=== PATIENT | female | born 1935 | race Caucasian/White ===

== ENCOUNTER → 2016-04-11 | Outpatient (CLI) | payer MEDICARE, BC ==
--- NOTE | 2016-04-11 13:40 | CT ---
EXAMINATION TYPE: CT brain wo con DATE OF EXAM: 04/11/2016 1:34 PM COMPARISON: Previous study dated 11/22/2015. HISTORY: Headache after injury. History of hematoma CT DLP: 909.40 mGycm Automated exposure control for dose reduction was used. FINDINGS: Central structures are midline. There is no evidence of hydrocephalus. There are mild, diffuse change s of atrophy. There is chronic White matter ischemic change. No subdural fluid collection is seen at this time. The orbits appear normal. Visualized portions of the paranasal sinuses and mastoids are clear. No depressed skull fracture is s een. IMPRESSION: 1. NO ACUTE INTRACRANIAL ABNORMALITY. 2. MILD ATROPHIC CHANGE. 3. CHRONIC WHITE MATTER ISCHEMIC CHANGE.
--- NOTE | 2016-04-11 13:41 | CT ---
EXAMINATION TYPE: CT mastoid wo con DATE OF EXAM: 04/11/2016 1:34 PM COMPARISON: CT scan of the chest earlier today. HISTORY: Headache after injury. History of hematoma CT DLP: 142.10 mGycm Automated exposure control for dose reduction was used. FINDINGS: There is mucoperiosteal thickening involving both maxillary sinuses. The mastoid air cells are clear. Middle and inner ear structures appear normal. No acute osseous lesion is seen. Both infundibula are patent. IMPRESSION: 1. NORMAL APPEARING MASTOIDS. 2. CHRONIC MUCOPERIOSTEAL THICKENING INVOLVING THE MAXILLARY SINUSES BILATERALLY.
== END | disposition home or self-care (01) ==
LOC: RADCTMAIN 13:03
PROVIDERS: ATTEND Family Medicine
DX: S06.5X0S Traumatic subdural hemorrhage without loss of consciousness, sequela (principal)
CPT/HCPCS: 70450; 70486

== ENCOUNTER 2023-12-17 19:00 | Emergency (ER) | payer BC, MEDICARE ==
[2023-12-17 19:08] VITALS: RESP 18; TEMP 97.2
--- NOTE | 2023-12-17 19:36 | ED ---
General Adult HPI - General Chief complaint: Fall Stated complaint: Fall, Head Injury Time Seen by Provider: 12/17/23 19:07 Source: patient, EMS Mode of arrival: EMS Limitations: no limitations - History of Present Illness Initial comments: Dictation was produced using [employer] dictation software. please excuse any grammatical, word or spelling errors. Chief Complaint: 88-year-old female presents with head injury History of Present Illness: Patient is 88-year-old female from [facility]. She states that she was sitting at the edge of her bed when she leaned over and fell forward. She hit her head. No loss of consciousness. Does not take any anticoagulation medications. She did have abrasion and hematoma on her forehead. Patient complaining of forehead pain. Denies any neck pain. Denies any other symptoms. The ROS documented in this emergency department record has been reviewed and confirmed by me. Those systems with pertinent positive or negative responses have been documented in the HPI. All other systems are other negative and/or noncontributory. - Related Data Home Medications Medication Instructions Recorded Confirmed metFORMIN HCL [Glucophage] 500 mg PO BID 08/11/13 11/02/15 lisinopriL [Prinivil] 20 mg PO DAILY 02/07/14 11/02/15 levETIRAcetam [Keppra] 500 mg PO Q12HR 10/28/15 11/02/15 Acetaminophen Tab [Tylenol Tab] 650 mg PO Q4H PRN 11/02/15 11/02/15 Acetaminophen-Codeine 300-30mg 1 tab PO Q6H PRN 11/02/15 11/02/15 [Tylenol #3] Calcium Carbonate/Vitamin D3 1 tab PO BID 11/02/15 11/02/15 [Os-Chirag 500+D3 Caplet] Docusate [Colace] 100 mg PO BID 11/02/15 11/02/15 Insulin NPH Hum/Reg Insulin Hm 2 unit SQ BID@0700,1730 11/02/15 11/02/15 [NovoLIN 70-30 100 UNIT/ML VIAL] Lidocaine [Lidoderm 5% Patch] 1 patch TRANSDERM DAILY 11/02/15 11/02/15 Magnesium Hydroxide [Milk of 2,400 mg PO DAILY PRN 11/02/15 11/02/15 Magnesia] Na Phos,M-B/Na Phos,Di-Ba [Fleet 133 ml RECTAL DAILY PRN 11/02/15 11/02/15 Adult] bisacodyL [Dulcolax] 10 mg RECTAL DAILY PRN 11/02/15 11/02/15 Allergies Allergy/AdvReac Type Severity Reaction Status Date / Time No Known Allergies Allergy Verified 10/04/23 00:49 Review of Systems ROS Statement: Those systems with pertinent positive or pertinent negative responses have been documented in the HPI. ROS Other: All systems not noted in ROS Statement are negative. Past Medical History Past Medical History: CVA/TIA, Diabetes Mellitus, Hypertension, Osteoarthritis (OA), Rheumatoid Arthritis (RA) Additional Past Medical History / Comment(s): NOSE BLEEDS EASILY, past hx. colon polyps, hx. TIA-some right sided weakness, subdural hematoma History of Any Multi-Drug Resistant Organisms: None Reported Past Surgical History: Back Surgery, Hysterectomy, Joint Replacement, Orthopedic Surgery, Tubal Ligation Additional Past Surgical History / Comment(s): DEVIATED SEPTUM REPAIR, SPINAL FUSION, neck fusions, bilateral hip & knee replacements Past Anesthesia/Blood Transfusion Reactions: No Reported Reaction Past Psychological History: No Psychological Hx Reported Smoking Status: Never smoker Past Alcohol Use History: None Reported Past Drug Use History: None Reported - Past Family History Mother Family Medical History: Cancer General Exam - General Exam Comments Initial Comments: PHYSICAL EXAM: General Impression: Alert and oriented x3, not in acute distress HEENT: Forehead hematoma with 3 nongaping superficial lacerations, extra-ocular movements intact, pupils equal and reactive to light bilaterally, mucous membranes moist. Cardiovascular: Heart regular rate and rhythm Chest: Able to complete full sentences, no retractions, no tachypnea Abdomen: abdomen soft, non-tender, non-distended, no organomegaly Musculoskeletal: Pulses present and equal in all extremities, no peripheral edema Motor: no focal deficits noted Neurological: CN II-XII grossly intact, no focal motor or sensory deficits noted Skin: Intact with no visualized rashes Psych: Normal affect and mood Limitations: no limitations Course Vital Signs 12/17/23 19:03 Temperature 97.2 F L Pulse Rate 100 Respiratory 18 Rate Blood Pressure 125/58 O2 Sat by Pulse 98 Oximetry EKG Findings - EKG Comments: EKG Findings:: My EKG interpretation: Ventricular rate 100, sinus tachycardia, period of 187, QRS 81, QTc 390. No VT prolongation, no QTC prolongation, no ST or T-wave changes noted. Overall, this EKG is unremarkable Procedures - Laceration Laceration #1 Consent Obtained: verbal consent Indication: laceration Site: face Description: linear Size of Sutures: other (dermabond) Patient Tolerated Procedure: well Medical Decision Making - Medical Decision Making Was pt. sent in by a medical professional or institution (, PA, UTILITY ENGINEER, urgent care, hospital, or jail...) When possible be specific @ -No Did you speak to anyone other than the patient for history (EMS, parent, family, police, friend...)? What history was obtained from this source @ -No Did you review nursing and triage notes (agree or disagree)? Why? @ -I reviewed and agree with nursing and triage notes Were old charts reviewed (outside hosp., previous admission, EMS record, old EKG, old radiological studies, urgent care reports/EKG's, jail records)? Report findings @ -No old charts were reviewed Differential Diagnosis (chest pain, altered mental status, abdominal pain women, abdominal pain men, vaginal bleeding, musculoskeletal, weakness, fever, dyspnea, syncope, headache, dizziness, GI bleed, back pain, seizure, CVA, palpatations, mental health)? @ -Skull fracture, neck fracture, brain bleed EKG interpreted by me (3pts min.). @ -See above X-rays interpreted by me (1pt min.). @ -None done CT interpreted by me (1pt min.). @ -CT brain and C-spine shows no acute processes U/S interpreted by me (1pt. min.). @ -None done What testing was considered but not performed or refused? (CT, X-rays, U/S, labs)? Why? @ -None What meds were considered but not given or refused? Why? @ -None Was smoking cessation discussed for >3mins.? @ -No Were there social determinants of health that impacted care today? How? (Homelessness, low income, unemployed, alcoholism, drug addiction, transportation, low edu. Level, literacy, decrease access to med. care, [facility], rehab)? @ -No Was there de-escalation of care discussed even if they declined (Discuss DNR or withdrawal of care, Hospice)? DNR status @ -No What co-morbidities impacted this encounter? (DM, HTN, Smoking, COPD, CAD, Cancer, CVA, ARF, Chemo, Hep., AIDS, mental health diagnosis, sleep apnea, morbid obesity)? @ -None Was patient admitted / discharged? Hospital course, mention meds given and route, prescriptions, significant lab abnormalities, going to OR and other pertinent info. @ -88-year-old female presents emergency department after she fell out of bed. Patient suffered mechanical fall after losing her balance. She has superficial lacerations to her forehead with hematoma. Vital signs upon arrival are within acceptable limits. Laboratory evaluation is unremarkable. CT brain is negative. Lacerations repaired using Dermabond and Steri-Strips. Patient discharged advised follow-up primary care doctor. Did you discuss the management of the patient with other professionals (professionals i.e. , PA, UTILITY ENGINEER, lab, RT, psych nurse, rn social services, gum puller, teacher, annual giving officer, block and case maker)? Give summary @ -No Was critical care preformed (if so, how long)? @ -No Undiagnosed new problem with uncertain prognosis? @ -No Drug Therapy requiring intensive monitoring for toxicity (Heparin, Nitro, Insulin, Cardizem)? @ -No Were any procedures done? @ -See above Diagnosis/symptom? Acute, or Chronic, or Acute on Chronic? Uncomplicated (without systemic symptoms) or Complicated (systemic symptoms)? @ -Fall, head contusion, forehead laceration Side effects of treatment? @ -No Exacerbation, Progression, or Severe Exacerbation? @ -No Poses a threat to life or bodily function? How? (Chest pain, USA, ID, pneumonia, PE, COPD, DKA, ARF, appy, cholecystitis, CVA, Diverticulitis, Homicidal, Suicidal, threat to staff... and all critical care pts) @ -No - Lab Data Result diagrams: 12/17/23 19:52 12/17/23 19:52 Lab Results 12/17/23 12/17/23 12/17/23 Range/Units 19:52 19:52 19:52 WBC 9.0 (3.8-10.6) k/uL RBC 4.38 (3.80-5.40) m/uL Hgb 12.4 (11.4-16.0) gm/dL Hct 40.2 (34.0-46.0) % MCV 91.8 (80.0-100.0) fL MCH 28.3 (25.0-35.0) pg MCHC 30.8 L (31.0-37.0) g/dL RDW 14.8 (11.5-15.5) % Plt Count 261 (150-450) k/uL MPV 7.5 Neutrophils % 76 % Lymphocytes % 16 % Monocytes % 4 % Eosinophils % 1 % Basophils % 0 % Neutrophils # 6.9 (1.3-7.7) k/uL Lymphocytes # 1.5 (1.0-4.8) k/uL Monocytes # 0.4 (0-1.0) k/uL Eosinophils # 0.1 (0-0.7) k/uL Basophils # 0.0 (0-0.2) k/uL Hypochromasia Slight PT 10.3 (10.0-12.5) sec INR 0.9 (<1.2) APTT 19.3 L (22.0-30.0) sec Sodium 139 (137-145) mmol/L Potassium 4.7 (3.5-5.1) mmol/L Chloride 103 (98-107) mmol/L Carbon Dioxide 30 (22-30) mmol/L Anion Gap 6 mmol/L BUN 27 H (7-17) mg/dL Creatinine 0.85 (0.52-1.04) mg/dL Est GFR (CKD-EPI)AfAm 72 (>60 ml/min/1.73 sqM) Est GFR (CKD-EPI)NonAf 63 (>60 ml/min/1.73 sqM) Glucose 224 H (74-99) mg/dL Calcium 9.6 (8.4-10.2) mg/dL Disposition Clinical Impression: Fall, Forehead laceration Disposition: HOME SELF-CARE Instructions (If sedation given, give patient instructions): Fall Prevention for Older Adults (ED) Is patient prescribed a controlled substance at d/c from ED?: No Referrals: None,Stated [REFERRING] - 1-2 days Time of Disposition: 21:16
[2023-12-17 20:34] LABS: Basophils % (A) 0 %; Eosinophils # (A) 0.1 k/uL (0-0.7); Eosinophils % (A) 1 %; HCT 40.2 % (34.0-46.0); HGB 12.4 gm/dL (11.4-16.0); Hypochromasia Slight; Lymphocytes # (A) 1.5 k/uL (1.0-4.8); Lymphocytes % (A) 16 %; MCH 28.3 pg (25.0-35.0); MCHC 30.8 g/dL (31.0-37.0); MCV 91.8 fL (80.0-100.0); Mean Platelet Volume 7.5; Monocytes # (A) 0.4 k/uL (0-1.0); Monocytes % (A) 4 %; Neutrophils # (A) 6.9 k/uL (1.3-7.7); Neutrophils % (A) 76 %; Platelet Count 261 k/uL (150-450); RBC 4.38 m/uL (3.80-5.40); RDW 14.8 % (11.5-15.5)
[2023-12-17] MEDS: DIPH,PERTUS(ACELL)TETVAC-LF 0.5 ML VIAL IM ONE (20:35)
--- NOTE | 2023-12-17 20:43 | CT ---
EXAMINATION TYPE: CT brain cspine wo con CT DLP: 1226.3 mGycm, Automated exposure control for dose reduction was used. DATE OF EXAM: 12/17/2023 8:04 PM COMPARISON: 10/04/2023. CLINICAL INDICATION: Female, 88 years old with history of fall; fell hitting forehead TECHNIQUE: Brain: Multiple axial CT images of the brain were obtained without IV contrast. Cspine: Axial CT images from the skull base to the inferior aspect of T2 we obtained without intraven ous contrast. Coronal and sagittal reformatted images were also reviewed. . FINDINGS: Brain: Extra-axial spaces: No abnormal extra-axial fluid collections. Ventricular system: Dilatation in proportion to cerebral atrophy. Cerebral parenchyma: Cerebral atrophy. Moderate centrum semiovale posterior frontal lobe prior injury unchanged from priors No acute intraparenchymal hemorrhage or mass effect. The garay-white junction is well differentiated. Scattered hypoattenuating areas are seen within the white matter. Cerebellum: Unremarkable. Mass effect: No evidence of midline shift. Intracranial vasculature: Atherosclerotic calcifications of the intracranial vessels. Soft tissues: . Right scalp edema. Calvarium/osseous structures: No depressed skull fracture. Paranasal sinuses and mastoid air cells: Clear. Visualized orbits: Bilateral aphakia Cervical spine: Fracture: None. Osseous structures: Multilevel degenerative disc disease changes with endplate spurring and disc oste ophyte complex's. Ankylosis of C5, C6-7 vertebral bodies Vertebral alignment: Within normal limits. Spinal canal/Neural Foramina: No evidence of significant spinal canal narrowing. No evidence for sign ificant neural foraminal stenosis. Neck soft tissues: Prevertebral soft tissues are within normal limits. Other: The airway is patent. The lung apices are clear. IMPRESSION: 1. No acute intracranial process. 2. Right scalp edema without evidence of fracture. 3. Nonspecific white matter changes, likely secondary to chronic small vessel ischemic disease. 4. No evidence of cervical spine fracture. 5. Moderate multilevel degenerative disc disease. [facility], , 12/17/2023 8:40 PM
[2023-12-17 20:49] LABS: African American GFR (CKD) 72 (>60 ml/min/1.73 sqM); Anion Gap 6 mmol/L; Blood Urea Nitrogen 27 mg/dL (7-17); Calcium 9.6 mg/dL (8.4-10.2); Carbon Dioxide 30 mmol/L (22-30); Chloride 103 mmol/L (98-107); Glucose 224 mg/dL (74-99); INR 0.9 (<1.2); Non-African American GFR(CKD) 63 (>60 ml/min/1.73 sqM); Potassium 4.7 mmol/L (3.5-5.1); Prothrombin Time 10.3 sec (10.0-12.5); Sodium 139 mmol/L (137-145)
[2023-12-17 21:02] LABS: Partial Thromboplastin Time 19.3 sec (22.0-30.0)
[2023-12-17] MEDS: TOPICAL SKIN ADHESIVE 1 EACH AMP TOPICAL ONE (21:14)
[2023-12-17 21:30] VITALS: BP 110/74; PULSE 101
== END 2023-12-17 22:05 | disposition home or self-care (01) ==
LOC: EC 19:00
CPT/HCPCS: 36415; 70450; 72125; 80048; 85025; 85610; 85730; 93005; 99284

== ENCOUNTER 2023-12-23 17:48 | Observation (INO) | payer MEDICARE ==
[2023-12-23 17:58] LABS: Glucose,Whole Blood 180 mg/dL (70-110)
--- NOTE | 2023-12-23 18:09 | ED ---
Altered Mental Status HPI - General Chief Complaint: Altered Mental Status Stated Complaint: AMS,Fever Time Seen by Provider: 12/23/23 17:56 Source: patient, EMS, RN notes reviewed, old records reviewed Mode of arrival: EMS - History of Present Illness Initial Comments: This is a 88-year-old female to ER for altered mental status fever weakness here in the ER presents for evaluation of not acting her appropriate level by her family. Patient unable to give current history but was complaining about back pain and abdominal pain MD Complaint: altered mental status -: hour(s) Severity: severe Consistency of Symptoms: getting worse Associated Symptoms: denies other symptoms Treatments Prior to Arrival: IV fluid - Related Data Home Medications Medication Instructions Recorded Confirmed metFORMIN HCL [Glucophage] 500 mg PO DAILY@0800 08/11/13 12/24/23 Cholecalciferol [Vitamin D3 (25 50 mcg PO DAILY@0800 12/24/23 12/24/23 Mcg = 1000 Iu)] Cyanocobalamin (Vitamin B-12) 1,000 mcg PO DAILY@0800 12/24/23 12/24/23 [Vitamin B-12] Dapagliflozin Propanediol [Farxiga] 5 mg PO DAILY@0800 12/24/23 12/24/23 Losartan [Cozaar] 25 mg PO DAILY@0800 12/24/23 12/24/23 Multivit with Calcium,Iron,Min 1 tab PO DAILY@0800 12/24/23 12/24/23 [Women's Multivitamin] Previous Rx's Medication Instructions Recorded Hydrocortisone Cream 1 applic TOPICAL TID 5 Days #28 gm 12/26/23 [Hydrocortisone 2.5% Cream] cefUROXime axetiL [Ceftin] 500 mg PO BID 2 Days #4 tab 12/26/23 Allergies Allergy/AdvReac Type Severity Reaction Status Date / Time No Known Allergies Allergy Verified 12/24/23 10:06 Review of Systems ROS Statement: Those systems with pertinent positive or pertinent negative responses have been documented in the HPI. ROS Other: All systems not noted in ROS Statement are negative. Past Medical History Past Medical History: CVA/TIA, Diabetes Mellitus, Hypertension, Osteoarthritis (OA), Rheumatoid Arthritis (RA) Additional Past Medical History / Comment(s): NOSE BLEEDS EASILY, past hx. colon polyps, hx. TIA-some right sided weakness, subdural hematoma History of Any Multi-Drug Resistant Organisms: None Reported Past Surgical History: Back Surgery, Hysterectomy, Joint Replacement, Orthopedic Surgery, Tubal Ligation Additional Past Surgical History / Comment(s): DEVIATED SEPTUM REPAIR, SPINAL FUSION, neck fusions, bilateral hip & knee replacements Past Anesthesia/Blood Transfusion Reactions: No Reported Reaction Past Psychological History: No Psychological Hx Reported Smoking Status: Never smoker Past Alcohol Use History: None Reported Past Drug Use History: None Reported - Past Family History Mother Family Medical History: Cancer General Exam General appearance: alert, in no apparent distress, anxious Head exam: Present: atraumatic, normocephalic, normal inspection Eye exam: Present: normal appearance, PERRL, EOMI. Absent: scleral icterus, conjunctival injection, periorbital swelling ENT exam: Present: normal exam, mucous membranes moist Neck exam: Present: normal inspection. Absent: tenderness, meningismus, lymphadenopathy Respiratory exam: Present: normal lung sounds bilaterally. Absent: respiratory distress, wheezes, rales, rhonchi, stridor Cardiovascular Exam: Present: normal rhythm, tachycardia, normal heart sounds. Absent: systolic murmur, diastolic murmur, rubs, gallop, clicks GI/Abdominal exam: Present: soft, normal bowel sounds. Absent: distended, tende rness, guarding, rebound, rigid Extremities exam: Present: normal inspection, full ROM, normal capillary refill. Absent: tenderness, pedal edema, joint swelling, calf tenderness Back exam: Present: normal inspection Neurological exam: Present: alert, oriented X3, CN II-XII intact Psychiatric exam: Present: normal affect, normal mood Skin exam: Present: warm, dry, intact, normal color. Absent: rash Course Vital Signs 12/23/23 12/23/23 12/23/23 17:56 21:48 23:00 Temperature 99.3 F 99.1 F Pulse Rate 126 H 111 H 104 H Respiratory 18 13 12 Rate Blood Pressure 143/76 100/47 104/52 O2 Sat by Pulse 94 L 94 L 95 Oximetry - Reevaluation(s) Reevaluation #1: 12/23/23 21:09 Medical records reviewed Reevaluation #2: 12/23/23 21:09 Patient symptoms mildly improving Reevaluation #3: 12/23/23 21:09 Patient informed of results and questions answered Reevaluation #4: Was pt. sent in by a medical professional or institution (BRINDA Vincent, ACCOUNTS RECEIVABLE REPRESENTATIVE, urgent care, hospital, or senior care...) When possible be specific @ -no Did you speak to anyone other than the patient for history (EMS, parent, family, police, friend...)? What history was obtained from this source @ -no Did you review nursing and triage notes (agree or disagree)? Why? @ -agree Are old charts reviewed (outside hosp., previous admission, EMS record, old EKG, old radiological studies, urgent care reports/EKG's, senior care records)? Report findings @ -yes Differential Diagnosis (chest pain, altered mental status, abdominal pain women, abdominal pain men, vaginal bleeding, weakness, fever, dyspnea, syncope, headac he, dizziness, GI bleed, back pain, seizure, CVA, palpatations, mental health, musculoskeletal)? @ -prior EKG interpreted by me (3pts min.). @ -yes X-rays interpreted by me (1pt min.). @ -yes negative for acute disease CT interpreted by me (1pt min.). @ -no U/S interpreted by me (1pt. min.). @ -no What testing was considered but not performed or refused? (CT, X-rays, U/S, labs)? Why? @ -none What meds were considered but not given or refused? Why? @ -none Did you discuss the management of the patient with other professionals (professionals i.e. BRINDA Vincent, ACCOUNTS RECEIVABLE REPRESENTATIVE, lab, RT, psych nurse, child protective services social worker, grocery store courtesy clerk, teacher, regulatory compliance officer, case therapist)? Give summary @ -no Was smoking cessation discussed for >3mins.? @ -no Was critical care preformed (if so, how long)? @ -[id number] Were there social determinants of health that impacted care today? How? (Homelessness, low income, unemployed, alcoholism, drug addiction, transportation, low edu. Level, literacy, decrease access to med. care, assisted, rehab)? @ -none Was there de-escalation of care discussed even if they declined (Discuss DNR or withdrawal of care, Hospice)? DNR status @ -no What co-morbidities impacted this encounter? (DM, HTN, Smoking, COPD, CAD, Cancer, CVA, ARF, Chemo, Hep., AIDS, mental health diagnosis, sleep apnea, mo rbid obesity)? @ -none Was patient admitted / discharged? Hospital course, mention meds given and r oute, prescriptions, significant lab abnormalities, going to OR and other pertinent info. @ - 88 female to the ER for evaluation patient will be admitted for altered mental status with fever and suspected UTI Admitted Undiagnosed new problem with uncertain prognosis? @ -no Drug Therapy requiring intensive monitoring for toxicity (Heparin, Nitro, Insulin, Cardizem)? @ -no Were any procedures done? @ -no Diagnosis/symptom? @ -Fever with altered mental status Acute, or Chronic, or Acute on Chronic? @ -Acute Uncomplicated (without systemic symptoms) or Complicated (systemic symptoms)? @ -Complicated Side effects of treatment? @ -no Exacerbation, Progression, or Severe Exacerbation? @ -exacerbation Poses a threat to life or bodily function? How? (Chest pain, [place], [place], pneumonia, PE, COPD, DKA, ARF, appy, cholecystitis, CVA, Diverticulitis, Homicidal, Suicidal, threat to staff... and all critical care pts) @ -yes extremes of age Reevaluation #5: Differential Fever: Pneumonia, viral URI, endocarditis, myocarditis, pericarditis, otitis, sinusitis, peritonsillar Abscess, retropharyngeal Abscess, epiglottitis, peritonitis, appendicitis, Charleen cystitis, diverticulitis, hepatitis, colitis, UTI, PID, TOA, pyelonephritis, prostatitis, epididymitis, meningitis, encephalitis, pulmonary embolism, CVA, thyroid storm, pancreatitis, adrenal crisis, cavernous sinus thrombosis, this is not meant to be an all-inclusive list. - Consultations Consultation #1: Poke with [facility] who agrees to admit this patient Medical Decision Making - Medical Decision Making 88 female to the ER for evaluation patient will be admitted for altered mental status with fever and suspected UTI - Lab Data Result diagrams: 12/26/23 04:19 12/25/23 05:52 Lab Results 12/23/23 12/23/23 12/23/23 Range/Units 17:56 18:09 18:09 WBC 10.4 (3.8-10.6) k/uL RBC 4.49 (3.80-5.40) m/uL Hgb 12.8 (11.4-16.0) gm/dL Hct 39.9 (34.0-46.0) % MCV 88.9 (80.0-100.0) fL MCH 28.5 (25.0-35.0) pg MCHC 32.1 (31.0-37.0) g/dL RDW 15.4 (11.5-15.5) % Plt Count 198 (150-450) k/uL MPV 7.7 Neutrophils % 95 % Lymphocytes % 2 % Monocytes % 3 % Eosinophils % 1 % Basophils % 0 % Neutrophils # 9.8 H (1.3-7.7) k/uL Lymphocytes # 0.2 L (1.0-4.8) k/uL Monocytes # 0.3 (0-1.0) k/uL Eosinophils # 0.1 (0-0.7) k/uL Basophils # 0.0 (0-0.2) k/uL Sodium (137-145) mmol/L Potassium (3.5-5.1) mmol/L Chloride (98-107) mmol/L Carbon Dioxide (22-30) mmol/L Anion Gap mmol/L BUN (7-17) mg/dL Creatinine (0.52-1.04) mg/dL Est GFR (CKD-EPI)AfAm (>60 ml/min/1.73 sqM) Est GFR (CKD-EPI)NonAf (>60 ml/min/1.73 sqM) Glucose (74-99) mg/dL POC Glucose (mg/dL) 180 H (70-110) mg/dL POC Glu Director Project Management ID May Plasma Lactic Acid Arvind (0.7-2.0) mmol/L Calcium (8.4-10.2) mg/dL Phosphorus (2.5-4.5) mg/dL Magnesium (1.6-2.3) mg/dL Total Bilirubin (0.2-1.3) mg/dL AST (14-36) U/L ALT (4-34) U/L Alkaline Phosphatase (38-126) U/L Total Protein (6.3-8.2) g/dL Albumin (3.5-5.0) g/dL Urine Color Urine Appearance (Clear) Urine pH (5.0-8.0) Ur Specific [place] (1.001-1.035) Urine Protein (Negative) Urine Glucose (UA) (Negative) Urine Ketones (Negative) Urine Blood (Negative) Urine Nitrite (Negative) Urine Bilirubin (Negative) Urine Urobilinogen (<2.0) mg/dL Ur Leukocyte Esterase (Negative) Urine RBC (0-5) /hpf Urine WBC (0-5) /hpf Ur Squamous Epith Cells (0-4) /hpf Urine Bacteria (None) /hpf Urine Mucus (None) /hpf Influenza Type A (PCR) Not Detected (Not Detectd) Influenza Type B (PCR) Not Detected (Not Detectd) RSV (PCR) Not Detected (Not Detectd) SARS-CoV-2 (PCR) Not Detected (Not Detectd) 12/23/23 12/23/23 12/23/23 Range/Units 18:09 18:09 18:09 WBC (3.8-10.6) k/uL RBC (3.80-5.40) m/uL Hgb (11.4-16.0) gm/dL Hct (34.0-46.0) % MCV (80.0-100.0) fL MCH (25.0-35.0) pg MCHC (31.0-37.0) g/dL RDW (11.5-15.5) % Plt Count (150-450) k/uL MPV Neutrophils % % Lymphocytes % % Monocytes % % Eosinophils % % Basophils % % Neutrophils # (1.3-7.7) k/uL Lymphocytes # (1.0-4.8) k/uL Monocytes # (0-1.0) k/uL Eosinophils # (0-0.7) k/uL Basophils # (0-0.2) k/uL Sodium 133 L (137-145) mmol/L Potassium 4.1 (3.5-5.1) mmol/L Chloride 100 (98-107) mmol/L Carbon Dioxide 26 (22-30) mmol/L Anion Gap 7 mmol/L BUN 17 (7-17) mg/dL Creatinine 0.72 (0.52-1.04) mg/dL Est GFR (CKD-EPI)AfAm 89 (>60 ml/min/1.73 sqM) Est GFR (CKD-EPI)NonAf 77 (>60 ml/min/1.73 sqM) Glucose 161 H (74-99) mg/dL POC Glucose (mg/dL) (70-110) mg/dL POC Glu Director Project Management ID Plasma Lactic Acid Arvind 1.6 (0.7-2.0) mmol/L Calcium 8.9 (8.4-10.2) mg/dL Phosphorus 2.6 (2.5-4.5) mg/dL Magnesium 1.7 (1.6-2.3) mg/dL Total Bilirubin 1.0 (0.2-1.3) mg/dL AST 57 H (14-36) U/L ALT 29 (4-34) U/L Alkaline Phosphatase 58 (38-126) U/L Total Protein 6.4 (6.3-8.2) g/dL Albumin 3.8 (3.5-5.0) g/dL Urine Color Yellow Urine Appearance Cloudy H (Clear) Urine pH 5.5 (5.0-8.0) Ur Specific [place] 1.029 (1.001-1.035) Urine Protein Trace H (Negative) Urine Glucose (UA) 4+ H (Negative) Urine Ketones 1+ H (Negative) Urine Blood Small H (Negative) Urine Nitrite Negative (Negative) Urine Bilirubin Negative (Negative) Urine Urobilinogen <2.0 (<2.0) mg/dL Ur Leukocyte Esterase Moderate H (Negative) Urine RBC 13 H (0-5) /hpf Urine WBC 81 H (0-5) /hpf Ur Squamous Epith Cells 4 (0-4) /hpf Urine Bacteria Rare H (None) /hpf Urine Mucus Rare H (None) /hpf Influenza Type A (PCR) (Not Detectd) Influenza Type B (PCR) (Not Detectd) RSV (PCR) (Not Detectd) SARS-CoV-2 (PCR) (Not Detectd) - EKG Data -: EKG Interpreted by Id - Radiology Data Radiology results: report reviewed (Chest x-ray is negative for acute disease, CT abdomen pelvis negative for acute disease), image reviewed Critical Care Time Critical Care Time: Yes Total Critical Care Time: 31 Disposition Clinical Impression: Altered mental status, Delirium due to general medical condition, Fever Disposition: ADMITTED IP TO THIS [facility] Condition: Fair Is patient prescribed a controlled substance at d/c from ED?: No Time of Disposition: 21:09
[2023-12-23] MEDS: IBUPROFEN 600 MG TAB PO STA (18:18)
[2023-12-23] MEDS: ACETAMINOPHEN TAB 500 MG TAB PO STA (18:18)
[2023-12-23] MEDS: SODIUM CHLORIDE 0.9% 1,000 ML IV STA (18:19)
[2023-12-23 18:30] LABS: Basophils % (A) 0 %; Eosinophils # (A) 0.1 k/uL (0-0.7); Eosinophils % (A) 1 %; HCT 39.9 % (34.0-46.0); HGB 12.8 gm/dL (11.4-16.0); Lymphocytes # (A) 0.2 k/uL (1.0-4.8); Lymphocytes % (A) 2 %; MCH 28.5 pg (25.0-35.0); MCHC 32.1 g/dL (31.0-37.0); MCV 88.9 fL (80.0-100.0); Mean Platelet Volume 7.7; Monocytes # (A) 0.3 k/uL (0-1.0); Monocytes % (A) 3 %; Neutrophils # (A) 9.8 k/uL (1.3-7.7); Neutrophils % (A) 95 %; Platelet Count 198 k/uL (150-450); RBC 4.49 m/uL (3.80-5.40); RDW 15.4 % (11.5-15.5); WBC 10.4 k/uL (3.8-10.6)
[2023-12-23] MEDS: ACETAMINOPHEN IV (For NPO) 1,000 MG in EMPTY BAG 1 BAG IVPB STA (18:39)
[2023-12-23] MEDS: IBUPROFEN IV 800 MG in SODIUM CHLORIDE 0.9% 250 ML IV ONE (18:39)
[2023-12-23 18:46] LABS: ALT 29 U/L (4-34); African American GFR (CKD) 89 (>60 ml/min/1.73 sqM); Albumin 3.8 g/dL (3.5-5.0); Anion Gap 7 mmol/L; Blood Urea Nitrogen 17 mg/dL (7-17); Calcium 8.9 mg/dL (8.4-10.2); Carbon Dioxide 26 mmol/L (22-30); Chloride 100 mmol/L (98-107); Glucose 161 mg/dL (74-99); Non-African American GFR(CKD) 77 (>60 ml/min/1.73 sqM); Sodium 133 mmol/L (137-145); Total Protein 6.4 g/dL (6.3-8.2)
[2023-12-23 18:50] LABS: Magnesium 1.7 mg/dL (1.6-2.3); Phosphorus 2.6 mg/dL (2.5-4.5); Potassium 4.1 mmol/L (3.5-5.1)
[2023-12-23 18:51] LABS: AST 57 U/L (14-36); Alkaline Phosphatase 58 U/L (38-126)
--- NOTE | 2023-12-23 19:36 | XR ---
EXAMINATION TYPE: XR chest 1V portable DATE OF EXAM: 12/23/2023 7:17 PM CLINICAL INDICATION: Female, 88 years old with history of weak; COMPARISON: Chest radiographs from 10/20/2015 TECHNIQUE: XR chest 1V portable Frontal view of the chest. FINDINGS: Lungs/Pleura: Prominent interstitial lung markings are seen scattered throughout the lungs. No eviden ce of focal consolidation, pneumothorax or pleural effusion. Pulmonary vascularity: Unremarkable. Heart/mediastinum: Cardiomediastinal silhouette is unremarkable. Musculoskeletal: No acute osseous pathology. IMPRESSION: Chronic changes without acute pulmonary process. No significant change from prior. [facility], , 12/23/2023 7:34 PM
[2023-12-23] MEDS ORDERED: ACETAMINOPHEN TAB 325 MG TAB PO PRN (21:05)
[2023-12-23] MEDS ORDERED: MORPHINE SULFATE 4 MG/ML SYRINGE IV PRN (21:05)
[2023-12-23] MEDS ORDERED: IBUPROFEN 400 MG TAB PO PRN (21:05)
[2023-12-23] MEDS ORDERED: NALOXONE 0.4 MG/ML 1 ML VIAL IV PRN (21:05)
--- NOTE | 2023-12-23 21:44 | CT ---
EXAMINATION TYPE: CT abdomen pelvis wo con CT DLP: 867 mGycm, Automated exposure control for dose reduction was used. DATE OF EXAM: 12/23/2023 9:36 PM COMPARISON: None CLINICAL INDICATION: Female, 88 years old with history of pain; Abdominal pain. TECHNIQUE: Axial CT abdomen pelvis wo con;Sagittal and coronal reformats were created on a separate workstation. Contrast used: mL of , (none if empty) Oral contrast used: without Oral Contrast (none if empty) FINDINGS: LOWER CHEST: There is mildly enlarged for size. Streaky interstitial edema in the lung bases. ABDOMEN LIVER: Unremarkable GALLBLADDER AND BILE DUCTS: Unremarkable. PANCREAS: Unremarkable. SPLEEN: Unremarkable. ADRENAL GLANDS: Unremarkable. KIDNEYS AND URETERS: Nonobstructing right 11 mm calculus andr left 4 mm calculus. No obstructive urop athy. PELVIS Streak artifact limits evaluation the pelvis. BLADDER: Unremarkable REPRODUCTIVE: Unremarkable. ABDOMEN & PELVIS STOMACH AND BOWEL: No evidence of bowel obstruction. Large amount of stool seen in the rectum. The ap pendix is normal. PERITONEUM/RETROPERITONEUM: No evidence of pneumoperitoneum or free fluid. VASCULATURE: No evidence of aortic aneurysm. MUSCULOSKELETAL: No acute osseous abnormalities. Severe disc degeneration changes are present through out the thoracolumbar spine with disc space narrowing, osteophyte formation facet arthropathy and sco liosis. Few scattered Schmorl's nodes are also present.. bilateral hip arthroplasties limit evaluatio n of the pelvis. LYMPH NODES: No gross evidence for lymphadenopathy. SOFT TISSUE/ABDOMINAL WALL: Unremarkable IMPRESSION: 1. Large stool burden in the rectum correlate for constipation. 2. No additional evidence for acute abdominal process. The appendix is normal. No obstructing uropat hy visualized. 3. Nonobstructing bilateral renal calculi. 4. Cardiomegaly with mild pulmonary vasculature congestion. Correlate with serum BNP. 5. Moderate to severe degeneration changes of the spine. [facility], Workstation: [id number], 12/23/2023 9:42 PM
[2023-12-24 00:54] LABS: Glucose,Whole Blood 161 mg/dL (70-110)
[2023-12-24] MEDS: SODIUM CHLORIDE 0.9% 1,000 ML IV SCH (01:00)
[2023-12-24] MEDS: ONDANSETRON 4 MG/2 ML VIAL IVP PRN (03:05)
[2023-12-24 07:36] LABS: Glucose,Whole Blood 122 mg/dL (70-110)
[2023-12-24 07:59] LABS: Basophils % (A) 0 %; Eosinophils # (A) 0.2 k/uL (0-0.7); Eosinophils % (A) 2 %; HCT 38.5 % (34.0-46.0); HGB 12.7 gm/dL (11.4-16.0); Lymphocytes # (A) 0.1 k/uL (1.0-4.8); Lymphocytes % (A) 1 %; MCH 29.3 pg (25.0-35.0); MCHC 32.9 g/dL (31.0-37.0); MCV 89.2 fL (80.0-100.0); Mean Platelet Volume 7.8; Monocytes # (A) 0.3 k/uL (0-1.0); Monocytes % (A) 3 %; Neutrophils # (A) 9.2 k/uL (1.3-7.7); Neutrophils % (A) 92 %; Platelet Count 182 k/uL (150-450); RBC 4.31 m/uL (3.80-5.40); RDW 15.4 % (11.5-15.5); WBC 9.9 k/uL (3.8-10.6)
[2023-12-24 08:14] LABS: ALT 33 U/L (4-34); AST 48 U/L (14-36); African American GFR (CKD) 77 (>60 ml/min/1.73 sqM); Albumin 3.2 g/dL (3.5-5.0); Alkaline Phosphatase 50 U/L (38-126); Anion Gap 5 mmol/L; Blood Urea Nitrogen 16 mg/dL (7-17); Calcium 8.4 mg/dL (8.4-10.2); Carbon Dioxide 26 mmol/L (22-30); Chloride 104 mmol/L (98-107); Glucose 130 mg/dL (74-99); Magnesium 1.7 mg/dL (1.6-2.3); Non-African American GFR(CKD) 67 (>60 ml/min/1.73 sqM); Phosphorus 2.9 mg/dL (2.5-4.5); Potassium 4.3 mmol/L (3.5-5.1); Sodium 135 mmol/L (137-145); Total Bilirubin 0.7 mg/dL (0.2-1.3); Total Protein 5.6 g/dL (6.3-8.2)
[2023-12-24 12:16] LABS: Glucose,Whole Blood 139 mg/dL (70-110)
[2023-12-24 13:15] VITALS: BMI 25.7
[2023-12-24 13:27] LABS: Appearance,Urine Cloudy (Clear); Bacteria,Urine Rare /hpf; Bilirubin,Urine Negative (Negative); Blood,Urine Small (Negative); Color,Urine Yellow; Glucose,Urine (UA) 4+ (Negative); Ketones,Urine 1+ (Negative); Leukocyte Esterase,Urine Moderate (Negative); Mucus,Urine Rare /hpf; Nitrite,Urine Negative (Negative); PH, Urine 5.5 (5.0-8.0); Protein,Urine Trace (Negative); RBC,Urine 13 /hpf (0-5); Specific Gravity,Urine 1.029 (1.001-1.035); Squamous Epithelial Cell,Urine 4 /hpf (0-4); Urobilinogen,Urine <2.0 mg/dL (<2.0); WBC,Urine 81 /hpf (0-5)
--- NOTE | 2023-12-24 15:52 | P.HPIM ---
History of Present Illness History of present illness; 88-year-old female with a past medical history of CVA/TIA, diabetes mellitus, OA, and RA presents with altered mental status, fever, and weakness. Per the patient's daughter she was with the patient at her assisted living yesterday and noticed the patient was acting strange. Per the daughter the patient has dementia but yesterday when she saw her she was much more altered than she usually is. At this time the daughter became worried and decided to bring her mother to the hospital for evaluation. Initial lab work from the ER was significant for WBC 10.4, neutrophils 9.8, sodium 133, glucose 161, creatinine 0.72, AST is 57, ALT 29, urinalysis shows cloudy appearance, 4+ glucose, small blood, moderate amount of leukocyte esterase, 13 RBC, 81 WBC, 4 squamous epithelial cells, and rare bacteria. Influenza type A and B, RSV, COVID all negative ER CXR: Chronic changes without acute cardiopulmonary process. No significant change from prior CXR. ER CT ABD/pelvis: Large stool burden in the rectum, no acute abdominal process nor obstructing uropathy, nonobstructing bilateral renal calculi, cardiomegaly with pulmonary vascular congestion, and moderate to severe degeneration changes of the spine. Patient admitted to internal medicine service REVIEW OF SYSTEMS: Patient unable to answer ROS questions at time of interview due to being tired. The rest of the 14-point review of systems is negative. PHYSICAL EXAMINATION: GENERAL: The patient is alert and oriented x3, not in any acute distress. Well developed, well nourished. HEENT: Pupils are round and equally reacting to light. EOMI. No scleral icterus. No conjunctival pallor. Normocephalic, atraumatic. No pharyngeal erythema. No thyromegaly. CARDIOVASCULAR: S1 and S2 present. No murmurs, rubs, or gallops. PULMONARY: Chest is clear to auscultation b/l, no wheezing or crackles. ABDOMEN: Soft, nontender, nondistended, normoactive bowel sounds. No palpable organomegaly. MUSCULOSKELETAL: No joint swelling or deformity. EXTREMITIES: No cyanosis, clubbing, or pedal edema. NEUROLOGICAL: Gross neurological examination did not reveal any focal deficits. SKIN: No rashes. Assessment & Plan: Acute: #Metabolic encephalopathy: Potentially secondary to UTI which could be secondary to significant constipation Ordered blood culture in the setting of elevated white count and neutrophils CT shows no evidence of obstructive uropathy Patient currently on Rocephin 2 g IVPB every 24 hours Continue to monitor #UTI: Pyuria noted in the urine, in the setting of already receiving 2 doses of IV Rocephin so extent of potential UTI may be diminished within the results of this UA Continue Rocephin 2 g IV daily Continue to monitor Chronic: #Diabetes mellitus: Continue home medication #Hypertension: Continue home medication #Osteoarthritis #Rheumatoid arthritis F: NS 50 cc/h E: None N: Regular diet DVT ppx: Lovenox 40 SQ daily GI ppx: Protonix 40 mg p.o. daily Dispo: Pending conical course Julisa Miller MD PGY-1 FM Dictation was produced using [employer] dictation software. please excuse any gr ammatical, word or spelling errors. Past Medical History Past Medical History: CVA/TIA, Diabetes Mellitus, Osteoarthritis (OA), Rheumatoid Arthritis (RA) Additional Past Medical History / Comment(s): NOSE BLEEDS EASILY, past hx. colon polyps, hx. TIA-some right sided weakness, subdural hematoma History of Any Multi-Drug Resistant Organisms: None Reported Past Surgical History: Back Surgery, Hysterectomy, Joint Replacement, Orthopedic Surgery, Tubal Ligation Additional Past Surgical History / Comment(s): DEVIATED SEPTUM REPAIR, SPINAL FUSION, neck fusions, bilateral hip & knee replacements Past Anesthesia/Blood Transfusion Reactions: No Reported Reaction Past Psychological History: No Psychological Hx Reported Additional Psychological History / Comment(s): history of dementia Smoking Status: Never smoker Past Alcohol Use History: None Reported Past Drug Use History: None Reported - Past Family History Mother Family Medical History: Cancer Medications and Allergies Home Medications Medication Instructions Recorded Confirmed Type metFORMIN HCL [Glucophage] 500 mg PO DAILY@0800 08/11/12/24/23 History Cholecalciferol [Vitamin D3 (25 50 mcg PO DAILY@79912/24/23 12/24/23 History Mcg = 1000 Iu)] Cyanocobalamin (Vitamin B-12) 1,000 mcg PO DAILY@0800 12/24/23 12/24/23 History [Vitamin B-12] Dapagliflozin Propanediol [Farxiga] 5 mg PO DAILY@0812/24/23 12/24/23 History Insulin NPH/Reg Insulin 70/30 10 - 15 unit SQ DAILY PRN 12/24/23 12/24/23 History [humuLIN 70/30 VIAL] Losartan [Cozaar] 25 mg PO DAILY@0800 12/24/23 12/24/23 History Multivit with Calcium,Iron,Min 1 tab PO DAILY@0800 12/24/23 12/24/23 History [Women's Multivitamin] Allergies Allergy/AdvReac Type Severity Reaction Status Date / Time No Known Allergies Allergy Verified 12/24/23 10:06 Physical Exam Vitals: Vital Signs Temp Pulse Pulse Resp BP BP Pulse Ox 12/24/23 07:24 99.0 F 98 16 115/65 95 12/24/23 00:03 98.2 F 97 18 92/55 95 12/23/23 23:00 99.1 F 104 H 12 104/52 95 12/23/23 21:48 111 H 13 100/47 94 L 12/23/23 17:56 99.3 F 126 H 18 143/76 94 L Intake and Output 12/23/23 12/24/23 12/24/23 22:59 06:59 14:59 Other: Voiding Method Bedside Commode Diaper External Catheter # Voids 1 # Bowel Movements 1 Weight 70.307 kg 70.307 kg Results CBC & Chem 7: 12/24/23 07:40 12/24/23 07:40 Labs: Abnormal Lab Results - Last 24 Hours (Table) 12/23/23 12/23/23 12/23/23 Range/Units 17:56 18:09 18:09 Neutrophils # 9.8 H (1.3-7.7) k/uL Lymphocytes # 0.2 L (1.0-4.8) k/uL Sodium 133 L (137-145) mmol/L Glucose 161 H (74-99) mg/dL POC Glucose (mg/dL) 180 H (70-110) mg/dL AST 57 H (14-36) U/L Total Protein (6.3-8.2) g/dL Albumin (3.5-5.0) g/dL 12/24/23 12/24/23 12/24/23 Range/Units 00:52 07:34 07:40 Neutrophils # 9.2 H (1.3-7.7) k/uL Lymphocytes # 0.1 L (1.0-4.8) k/uL Sodium (137-145) mmol/L Glucose (74-99) mg/dL POC Glucose (mg/dL) 161 H 122 H (70-110) mg/dL AST (14-36) U/L Total Protein (6.3-8.2) g/dL Albumin (3.5-5.0) g/dL 12/24/23 Range/Units 07:40 Neutrophils # (1.3-7.7) k/uL Lymphocytes # (1.0-4.8) k/uL Sodium 135 L (137-145) mmol/L Glucose 130 H (74-99) mg/dL POC Glucose (mg/dL) (70-110) mg/dL AST 48 H (14-36) U/L Total Protein 5.6 L (6.3-8.2) g/dL Albumin 3.2 L (3.5-5.0) g/dL Thrombosis Risk Factor Assmnt - Choose All That Apply Any of the Below Risk Factors Present?: No Each Risk Factor Represents 3 Points: Age 75 years or older, History of DVT/PE Thrombosis Risk Factor Assessment Total Risk Factor Score: 6 Thrombosis Risk Factor Assessment Level: High Risk
[2023-12-24] MEDS ORDERED: QUEtiapine 25 MG TAB PO PRN (15:55)
[2023-12-24 17:42] LABS: Glucose,Whole Blood 167 mg/dL (70-110)
[2023-12-24] MEDS: INSULIN ASPART (NovoLOG) 100 UNIT/ML VIAL SQ SCH (18:00)
[2023-12-24 20:20] LABS: Glucose,Whole Blood 201 mg/dL (70-110)
[2023-12-24] MEDS: LORazepam 2 MG/ML INJ IV STA (20:52)
[2023-12-25 07:22] LABS: Glucose,Whole Blood 117 mg/dL (70-110)
[2023-12-25 09:13] LABS: Basophils # (A) 0.02 X 10*3/uL (0.00-0.10); Basophils % (A) 0.3 %; Eosinophils # (A) 0.46 X 10*3/uL (0.04-0.35); HCT 38.3 % (37.2-46.3); HGB 12.2 g/dL (12.0-15.0); Lymphocytes # (A) 0.89 X 10*3/uL (0.90-5.00); Lymphocytes % (A) 11.7 %; MCH 28.6 pg (27.0-32.0); MCHC 31.9 g/dL (32.0-37.0); MCV 89.9 FL (80.0-97.0); Mean Platelet Volume 10.4 FL (9.5-12.2); Monocytes # (A) 0.46 X 10*3/uL (0.20-1.00); NRBC Per 100 WBC 0 X 10*3/uL (0.00-0.01); Neutrophils # (A) 5.78 X 10*3/uL (1.80-7.70); Neutrophils % (A) 75.7 %; Platelet Count 163 X 10*3/uL (140-440); RBC 4.26 X 10*6/uL (4.10-5.20); RDW 15.5 % (11.5-14.5); WBC 7.63 X 10*3/uL (4.50-10.00)
[2023-12-25 09:25] LABS: BUN/Creat Ratio 12.78 Ratio (12.00-20.00); Blood Urea Nitrogen 11.5 mg/dL (9.0-27.0); Calcium 8.3 mg/dL (8.7-10.3); Carbon Dioxide 25.4 mmol/L (21.6-31.8); Chloride 106 mmol/L (96-109); Glucose 134 mg/dL (70-110); Potassium 4.8 mmol/L (3.5-5.5); Sodium 139 mmol/L (135-145)
[2023-12-25] MEDS: ENOXAPARIN 40 MG/0.4 ML SYRINGE SQ SCH (09:48)
[2023-12-25] MEDS: DAPAGLIFLOZIN PROPANEDIOL 5 MG TABLET PO SCH (09:48)
[2023-12-25] MEDS: metFORMIN 500 MG TAB PO SCH (09:48)
[2023-12-25] MEDS: PANTOPRAZOLE 40 MG TABLET PO SCH (09:48)
[2023-12-25] MEDS: CYANOCOBALAMIN 500 MCG TAB PO SCH (09:48)
[2023-12-25] MEDS: LOSARTAN 25 MG TAB PO SCH (09:48)
[2023-12-25] MEDS: CHOLECALCIFEROL 25 MCG (1000 IU) TABLET PO SCH (09:48)
[2023-12-25] MEDS: MULTIVITAMINS, THERA 1 EACH TAB PO SCH (09:48)
[2023-12-25 12:04] LABS: Glucose,Whole Blood 211 mg/dL (70-110)
[2023-12-25] MEDS: polyethylene glycoL 3350 17 GM POWD.PACK PO SCH (13:01)
[2023-12-25] MEDS: HYDROCORTISONE SUPPOSITORY 25 MG SUPP RECTAL SCH (13:01)
--- NOTE | 2023-12-25 13:35 | P.PN ---
Subjective History of present illness; 88-year-old female with a past medical history of CVA/TIA, diabetes mellitus, OA, and RA presents with altered mental status, fever, and weakness. Per the patient's daughter she was with the patient at her assisted living yesterday and noticed the patient was acting strange. Per the daughter the patient has dementia but yesterday when she saw her she was much more altered than she usually is. At this time the daughter became worried and decided to bring her mother to the hospital for evaluation. Initial lab work from the ER was significant for WBC 10.4, neutrophils 9.8, sodium 133, glucose 161, creatinine 0.72, AST is 57, ALT 29, urinalysis shows cloudy appearance, 4+ glucose, small blood, moderate amount of leukocyte esterase, 13 RBC, 81 WBC, 4 squamous epithelial cells, and rare bacteria. Influenza type A and B, RSV, COVID all negative ER CXR: Chronic changes without acute cardiopulmonary process. No significant change from prior CXR. ER CT ABD/pelvis: Large stool burden in the rectum, no acute abdominal process nor obstructing uropathy, nonobstructing bilateral renal calculi, cardiomegaly with pulmonary vascular congestion, and moderate to severe degeneration changes of the spine. Subjective: 12/25/2023: Patient seen at bedside. No significant overnight events. Patient reports she is having trouble going to the bathroom but is able to pass stool and urine. Pertinent positives and negatives discussed above, a complete review of systems was preformed and all the other sytems were negative. Vitals Signs Reveiwed. General: non toxic, no distress, appears at stated age, normal weight Derm: no unusual rashes/lesions, warm, bruising noted bilaterally on the forehead in the setting of the patient having a recent fall Head: atraumatic, normocephalic, symmetric Eyes: EOMI, no lid lag, anicteric sclera, pupils equal round reactive to light ENT: Nose and ears atraumatic Neck: No cervical lymphadenopathy, trachea midline, supple Mouth: no lip lesion, mucus membranes moist Cardiovascular: S1S2 reg, no murmur, positive dorsalis pedis pulse bilateral, no edema Lungs: Decreased air entry bilaterally, no rhonchi, no rales, no accessory muscle use Abdominal: soft, nontender to palpation, no guarding Ext: muscle strength 5 out of 5 in all 4 extremities grossly, no gross muscle atrophy, no contractures, Neuro: CN II-XI grossly intact, no gross focal neuro deficits Psych: Alert, oriented, appropriate affect Data Reveiwed Today: Patient Labs: WBC 7.63, hemoglobin 12.2, MCV 89.9, sodium 139, potassium 4.8, creatinine 0.9, glucose 134, and calcium 8.3. Imaging: No new imaging Assessment & Plan: Acute: #Metabolic encephalopathy: Potentially secondary to UTI which could be secondary to significant constipation Ordered blood culture in the setting of elevated white count and neutrophils CT shows no evidence of obstructive uropathy Patient currently on Rocephin 2 g IVPB every 24 hours Continue to monitor #UTI: Pyuria noted in the urine, in the setting of already receiving 2 doses of IV Rocephin so extent of potential UTI may be diminished within the results of this UA Continue Rocephin 2 g IV daily, this will be day 3 and we will discontinue it tomorrow Continue to monitor #Hemorrhoids/constipation: Started patient on hydrocortisone suppository 25 mg rectal twice daily and polyethylene glycol 17 g p.o. daily Continue to monitor #Hypocalcemia: Continue to monitor Chronic: #Diabetes mellitus: Continue home medication #Hypertension: Continue home medication #Osteoarthritis #Rheumatoid arthritis F: NS 50 cc/h E: None N: Regular diet DVT ppx: Lovenox 40 SQ daily GI ppx: Protonix 40 mg p.o. daily CODE STATUS: Full code Dispo: Patient will receive last dose of Rocephin tomorrow, is medically stable and pending Auth for short-term rehab. Julisa Miller MD PGY-1 Objective - Vital Signs Vital signs: Vital Signs Temp 98.2 F 12/25/23 07:12 Pulse 84 12/25/23 07:12 Resp 16 12/25/23 07:12 BP 130/71 12/25/23 07:12 Pulse Ox 97 12/25/23 07:12 FiO2 Intake & Output 12/24/23 12/25/23 12/25/23 18:59 06:59 18:59 Intake Total 708 Balance 708 Weight 70.307 kg Intake: Oral 708 Other: Voiding Method Bedside Commode Bedside Commode Diaper Diaper External Catheter # Voids 1 3 # Bowel Movements 1 1 - Labs CBC & Chem 7: 12/25/23 05:52 12/25/23 05:52 Labs: Abnormal Lab Results - Last 24 Hours (Table) 12/23/23 12/24/23 12/24/23 Range/Units 18:09 12:15 17:41 MCHC (32.0-37.0) g/dL RDW (11.5-14.5) % Lymphocytes # (0.90-5.00) X 10*3/uL Eosinophils # (0.04-0.35) X 10*3/uL Glucose (70-110) mg/dL POC Glucose (mg/dL) 139 H 167 H (70-110) mg/dL Calcium (8.7-10.3) mg/dL Urine Appearance Cloudy H (Clear) Urine Protein Trace H (Negative) Urine Glucose (UA) 4+ H (Negative) Urine Ketones 1+ H (Negative) Urine Blood Small H (Negative) Ur Leukocyte Esterase Moderate H (Negative) Urine RBC 13 H (0-5) /hpf Urine WBC 81 H (0-5) /hpf Urine Bacteria Rare H (None) /hpf Urine Mucus Rare H (None) /hpf 12/24/23 12/25/23 12/25/23 Range/Units 20:17 05:52 05:52 MCHC 31.9 L (32.0-37.0) g/dL RDW 15.5 H (11.5-14.5) % Lymphocytes # 0.89 L (0.90-5.00) X 10*3/uL Eosinophils # 0.46 H (0.04-0.35) X 10*3/uL Glucose 134 H (70-110) mg/dL POC Glucose (mg/dL) 201 H (70-110) mg/dL Calcium 8.3 L (8.7-10.3) mg/dL Urine Appearance (Clear) Urine Protein (Negative) Urine Glucose (UA) (Negative) Urine Ketones (Negative) Urine Blood (Negative) Ur Leukocyte Esterase (Negative) Urine RBC (0-5) /hpf Urine WBC (0-5) /hpf Urine Bacteria (None) /hpf Urine Mucus (None) /hpf 12/25/23 Range/Units 07:21 MCHC (32.0-37.0) g/dL RDW (11.5-14.5) % Lymphocytes # (0.90-5.00) X 10*3/uL Eosinophils # (0.04-0.35) X 10*3/uL Glucose (70-110) mg/dL POC Glucose (mg/dL) 117 H (70-110) mg/dL Calcium (8.7-10.3) mg/dL Urine Appearance (Clear) Urine Protein (Negative) Urine Glucose (UA) (Negative) Urine Ketones (Negative) Urine Blood (Negative) Ur Leukocyte Esterase (Negative) Urine RBC (0-5) /hpf Urine WBC (0-5) /hpf Urine Bacteria (None) /hpf Urine Mucus (None) /hpf Microbiology - Last 24 Hours (Table) 12/23/23 18:09 Blood Culture - Preliminary Blood
[2023-12-25 17:12] LABS: Glucose,Whole Blood 182 mg/dL (70-110)
[2023-12-25 20:38] LABS: Glucose,Whole Blood 166 mg/dL (70-110)
[2023-12-26 07:23] LABS: Glucose,Whole Blood 129 mg/dL (70-110)
[2023-12-26 07:55] VITALS: BP 121/67; PULSE 81; RESP 14; TEMP 97.7
--- NOTE | 2023-12-26 08:23 | P.DS ---
Providers Date of admission: 12/23/23 21:06 Discharge Diagnosis: Metabolic encephalopathy UTI Hemorrhoids/constipation Hypocalcemia Type 2 diabetes Hypertension Osteoarthritis Rheumatoid arthritis Hospital Course: Patient is a pleasant 88-year-old female with a past medical history of CVA/TIA, diabetes mellitus, OA, and RA presents with altered mental status, fever, and weakness. Per the patient's daughter she was with the patient at her assisted living yesterday and noticed the patient was acting strange. Per the daughter the patient has dementia but yesterday when she saw her she was much more altered than she usually is. At this time the daughter became worried and decided to bring her mother to the hospital for evaluation. Initial lab work from the ER was significant for WBC 10.4, neutrophils 9.8, sodium 133, glucose 161, creatinine 0.72, AST is 57, ALT 29, urinalysis shows cloudy appearance, 4+ glucose, small blood, moderate amount of leukocyte esterase, 13 RBC, 81 WBC, 4 squamous epithelial cells, and rare bacteria. Influenza type A and B, RSV, COVID all negative ER CXR: Chronic changes without acute cardiopulmonary process. No significant change from prior CXR. ER CT ABD/pelvis: Large stool burden in the rectum, no acute abdominal process nor obstructing uropathy, nonobstructing bilateral renal calculi, cardiomegaly with pulmonary vascular congestion, and moderate to severe degeneration changes of the spine. Patient was admitted for further workup of acute metabolic encephalopathy. While admitted patient was given Rocephin 2 g IV daily for 3 days. 12/25/2023: Patient seen at bedside. No significant overnight events. Patient reports she is having trouble going to the bathroom but is able to pass stool and urine. 12/26/2023: Patient seen and examined at bedside. No acute events overnight. No acute complaints. Antibiotics discontinued today. Patient is to follow-up with PCP. He is being discharged to short-term rehab. Vital signs reviewed and stable. Physical examination: Vital signs reviewed General: non toxic, no distress, appears at stated age, normal weight Derm: no unusual rashes/lesions, warm, bruising noted bilaterally on the forehead in the setting of the patient having a recent fall Head: atraumatic, normocephalic, symmetric Eyes: EOMI, no lid lag, anicteric sclera, pupils equal round reactive to light ENT: Nose and ears atraumatic Neck: No cervical lymphadenopathy, trachea midline, supple Mouth: no lip lesion, mucus membranes moist Cardiovascular: S1S2 reg, no murmur, positive dorsalis pedis pulse bilateral, no edema Lungs: Decreased air entry bilaterally, no rhonchi, no rales, no accessory muscle use Abdominal: soft, nontender to palpation, no guarding Ext: muscle strength 5 out of 5 in all 4 extremities grossly, no gross muscle atrophy, no contractures, Neuro: CN II-XI grossly intact, no gross focal neuro deficits Psych: Alert, oriented, appropriate affect A total of greater than minutes of time were spent preparing this complex discharge summary. Patient was discharged on December 26, 2023 at 7:31 AM. Expected date of discharge: 12/26/23 Attending physician: Caterina Arzola Primary care physician: [facility] Course: Attestation Attestation/ [employer] Supervisor Note: Attestation to D/C Summary, Participation (I saw and evaluated the patient with the Resident, and I reviewed and discussed the patient with the Resident and agree with the Resident's findings and plans as documented above., immediately available, management reviewed and discussed), I agree with findings & plan, Provider Signature (TING ANDERSON, PELON Cox. Patient Condition at Discharge: Fair Plan - Discharge Summary Discharge Rx Participant: No New Discharge Prescriptions: New cefUROXime axetiL [Ceftin] 500 mg PO BID 2 Days #4 tab Hydrocortisone Cream [Hydrocortisone 2.5% Cream] 1 applic TOPICAL TID 5 Days #28 gm Continue metFORMIN HCL [Glucophage] 500 mg PO DAILY@0800 Multivit with Calcium,Iron,Min [Women's Multivitamin] 1 tab PO DAILY@0800 Losartan [Cozaar] 25 mg PO DAILY@0800 Dapagliflozin Propanediol [Farxiga] 5 mg PO DAILY@0800 Cholecalciferol [Vitamin D3 (25 Mcg = 1000 Iu)] 50 mcg PO DAILY@0800 Cyanocobalamin (Vitamin B-12) [Vitamin B-12] 1,000 mcg PO DAILY@0800 Discontinued Insulin NPH/Reg Insulin 70/30 [humuLIN 70/30 VIAL] 10 - 15 unit SQ DAILY PRN PRN Reason: high bs Discharge Medication List metFORMIN HCL [Glucophage] 500 mg PO DAILY@0800 08/11/13 [History] Cholecalciferol [Vitamin D3 (25 Mcg = 1000 Iu)] 50 mcg PO DAILY@0800 12/24/23 [History] Cyanocobalamin (Vitamin B-12) [Vitamin B-12] 1,000 mcg PO DAILY@0812/24/23 [History] Dapagliflozin Propanediol [Farxiga] 5 mg PO DAILY@0800 12/24/23 [History] Losartan [Cozaar] 25 mg PO DAILY@0812/24/23 [History] Multivit with Calcium,Iron,Min [Women's Multivitamin] 1 tab PO DAILY@0812/24/23 [History] Hydrocortisone Cream [Hydrocortisone 2.5% Cream] 1 applic TOPICAL TID 5 Days #28 gm 12/26/23 [Rx] cefUROXime axetiL [Ceftin] 500 mg PO BID 2 Days #4 tab 12/26/23 [Rx] Follow up Appointment(s)/Referral(s): Tiffanie Dunaway MD [Primary Care Provider] - 1-2 days Activity/Diet/Wound Care/Special Instructions: Low carbohydrate diet 1600 kcal/day Activity as tolerated Patient also may benefit from insulin sliding scale, low correctional scale. We recommend to check her glucose 4 times per day before each meal and at bedtime. Keep the results in a logbook and presented to the fdc doctor If your glucose less than 70 or more than 400 then call 911 and come to emergency room Discharge Disposition: TRANSFER TO SNF/ECF
[2023-12-26 09:17] LABS: Basophils # (A) 0.02 X 10*3/uL (0.00-0.10); Basophils % (A) 0.4 %; Eosinophils # (A) 0.43 X 10*3/uL (0.04-0.35); Eosinophils % (A) 7.8 %; HCT 36.9 % (37.2-46.3); HGB 11.6 g/dL (12.0-15.0); Lymphocytes # (A) 1.02 X 10*3/uL (0.90-5.00); Lymphocytes % (A) 18.6 %; MCH 28.4 pg (27.0-32.0); MCHC 31.4 g/dL (32.0-37.0); MCV 90.4 FL (80.0-97.0); Mean Platelet Volume 10.7 FL (9.5-12.2); Monocytes # (A) 0.32 X 10*3/uL (0.20-1.00); Monocytes % (A) 5.8 %; NRBC Per 100 WBC 0 X 10*3/uL (0.00-0.01); Neutrophils # (A) 3.68 X 10*3/uL (1.80-7.70); Neutrophils % (A) 67.2 %; Platelet Count 163 X 10*3/uL (140-440); RBC 4.08 X 10*6/uL (4.10-5.20); RDW 15.2 % (11.5-14.5); WBC 5.48 X 10*3/uL (4.50-10.00)
== END 2023-12-26 11:07 ==
LOC: EC 17:48 → 5NMEDONC 21:06
PROVIDERS: ADMIT Hospitalist; ATTEND Hospitalist
DX: G93.41 Metabolic encephalopathy (principal); N39.0 Urinary tract infection, site not specified; E83.51 Hypocalcemia; F03.90 Unspecified dementia, unspecified severity, without behavioral disturbance, psychotic disturbance, mood disturbance, and anxiety; E11.9 Type 2 diabetes mellitus without complications; I10 Essential (primary) hypertension; M06.9 Rheumatoid arthritis, unspecified; M19.90 Unspecified osteoarthritis, unspecified site; K59.00 Constipation, unspecified; K64.9 Unspecified hemorrhoids; Z86.73 Personal history of transient ischemic attack (TIA), and cerebral infarction without residual deficits; Z79.899 Other long term (current) drug therapy; Z79.84 Long term (current) use of oral hypoglycemic drugs; Z79.4 Long term (current) use of insulin
CPT/HCPCS: 96376; 96366 ×2; 96372 ×2; 96375; 96365; 99291; 36415; 97161; 97166; 80053 ×2; 80048; 83605; 83735 ×2; 84100 ×2; 85025 ×4; 81001; 87040; 87636; 71045; 74176; G0378 ×4; J2405; J0696 ×4; J1650 ×2